=== PATIENT | female | born 1945 | race Caucasian/White ===

== ENCOUNTER 2016-12-04 20:03 | Emergency (ER) | payer MEDICARE ==
[2016-12-04 20:20] VITALS: BMI 30.3
[2016-12-04 20:57] LABS: AUTOMATED EOSINOPHIL 2.7 % (0-5); AUTOMATED LYMPH 24.6 % (17-44); AUTOMATED NEUTROPHIL 58.7 % (45-76); MPV 8.9 fL (7.4-10.4)
[2016-12-04 21:04] LABS: BLOOD UREA NITROGEN 14 MG/DL (7-17); CALCIUM 9.1 MG/DL (8.4-10.2); CALCULATED OSMOLALITY 269 MOs/Kg (270-290); CHLORIDE 100 mEq/L (98-107); GLUCOSE 136 mg/dL (70-99); SODIUM LEVEL 138 mEq/L (137-146); TOTAL PROTEIN 8.1 G/DL (6.3-8.2)
--- NOTE | 2016-12-04 21:04 | DIRPT ---
CLINICAL DATA: Severe left-sided chest pain, onset this evening. Bilateral shoulder blade pain all day. EXAM: PORTABLE CHEST 1 VIEW COMPARISON: None. FINDINGS: The cardiomediastinal contours are normal. The lungs are clear. Pulmonary vasculature is normal. No consolidation, pleural effusion, or pneumothorax. No acute osseous abnormalities are seen. IMPRESSION: No acute pulmonary process. Electronically Signed By: Shannan Yoder M.D. On: 12/04/2016 21:02
[2016-12-04 21:23] LABS: PARTIAL THROMB. TIME 22.9 SEC (22-35)
[2016-12-04] MEDS ORDERED: TRAMADOL 37.5 MG/ACETAMINOPHEN 325 MG TAB PO ONE (21:24)
--- NOTE | 2016-12-04 21:25 | EDPRACDOC ---
- General Information Chief Complaint: Chest Pain Stated Complaint: CHEST PAIN Time Seen by Provider: 12/04/16 20:41 Information Source: Patient Mode of Arrival: Car Home Medications: Home Medications Alprazolam [Xanax] 1 mg PO BID PRN 12/04/16 Atorvastatin Calcium [Lipitor] 40 mg PO DAILY 12/04/16 Hydrocodone Bit/Acetaminophen [[place] 7.5-325 Tablet] 1 tab PO BID PRN 12/04/16 Ketorolac Tromethamine [Toradol] 10 mg PO Q6H PRN #20 tab 12/04/16 Lisinopril/Hydrochlorothiazide [Lisinopril-Hctz 20-25 mg Tab] 1 tab PO DAILY 12/19 Omeprazole 20 mg PO DAILY 12/04/16 Sertraline HCl 100 mg PO DAILY 12/04/16 Allergies/Adverse Reactions: Allergies Allergy/AdvReac Type Severity Reaction Status Date / Time No Known Allergies Allergy Verified 12/04/16 20:20 - History of Present Illness Onset: TODAY HPI: C/o left side CP radiating to back and left arm and dizzyness since this morning. Pain is worse with movement of left arm, and pt cannot turn head to left without causing the pain in chest. Denies trauma, sob, fever, N/V/D, cough , chnages in urine or BM. Med hx = - cardiac dz, HTn, HDL, acid reflux. Chest Pain Location: Reports: Left Chest Pain Radiation: Reports: Back, Neck, Shoulder (L), Arm (L) Symptoms Occur: Reports: Gradually, At Rest, With light exertion Cardiac Risk Factors: Reports: Hyperlipidemia, Hypertension Cardiac History of: Reports: None PE Risk Factors: Reports: None Medications within 24 Hours: Reports: None Prehospital Care: Reports: None Pain Came On: Reports: Gradually Pain Status: Present Now Pain Description: Reports: Sharp Pain Severity: Moderate Pain Worsens With: Reports: Exertion, Coughing, Breathing, Movement Pain Improves With: Reports: Nothing Associated Signs and Symptoms: Reports: None ED Past Medical History - History Reviewed Yes Nurses notes reviewed and agree except as marked - Patient Medical History Cardiac History: Reports: Hypertension, Hypercholesterolemia Psychological History: Denies: Depression Surgical History: Reports: Cholecystectomy - Social Medical History Smoking Status: Never smoker EDM Review of Systems - Review of Systems ROS Negative Except as Marked: Yes All systems reviewed and were negative except as marked Cardiovascular: Chest Pain Musculoskeletal: Arm (left pain), Back (left upper back pain), Neck (left neck pain) - Physical Exam Constitutional: Alert, Distress (pain) Oriented to: Time, Person, Place Last recorded Vital Signs: Last Vital Signs Temp 97.4 F L 12/04/16 20:14 Pulse 98 12/04/16 20:14 Resp 22 12/04/16 20:14 BP 141/72 12/04/16 20:14 Pulse Ox 94 12/04/16 20:14 Oxygen Pulse Oxygen Saturation 94 O2 Device Room Air Oxygen Flow Rate Fraction of Inspired Oxygen ( FIO2) - HEENT Head: Normal Eye Exam: negative: Conjunctival Injection, Scleral Icterus Oropharynx: negative: Drooling TMJ: Normal Nose: No Symptoms Reported Neck: Normal - Respiratory/Cardiovascular Respiratory: Normal - CTA Cardiovascular: Normal - GI Tenderness: Non tender - Musculoskeletal Back: Normal Extremities: Normal - Integumentary Skin: Normal - Neurologic Mood Description: Normal Thought: Coherent Perception: Normal Other Exam Findings: chest wall is non TTP. pain reproduced by movement of neck to left and movement of left arm. denies trauma. ED Chest Pain Exam - Respiratory/Cardiovascular Respiratory: Normal - CTA Cardiovascular/Chest: Normal Radial Pulse: Normal Pedal Pulse: Normal Edema: negative: 1+, 2+, 3+, 4+, 5, 6 Chest Palpation: Normal - Action ASA given in the ED: No - Results 12/04/16 20:15 12/04/16 20:15 WBC 17.9 xk/uL (3.8-10.8) H 12/04/16 20:15 RBC 4.62 xM/uL (4.20-5.40) 12/04/16 20:15 Hgb 14.1 g/dL (12.0-16.0) 12/04/16 20:15 Hct 42.4 % (36-47) 12/04/16 20:15 MCV 92 fL (81-99) 12/04/16 20:15 MCH 30.6 pg (27-32) 12/04/16 20:15 MCHC 33.3 g/dl (33-36) 12/04/16 20:15 RDW 14.2 % (11.5-14.5) 12/04/16 20:15 Plt Count 314 xk/uL (130-400) 12/04/16 20:15 MPV 8.9 fL (7.4-10.4) 12/04/16 20:15 Neut % (Auto) 58.7 % (45-76) 12/04/16 20:15 Lymph % (Auto) 24.6 % (17-44) 12/04/16 20:15 [place] % (Auto) 13.0 % (3-10) H 12/04/16 20:15 Eos % (Auto) 2.7 % (0-5) 12/04/16 20:15 Baso % (Auto) 1.0 % (0-2) 12/04/16 20:15 Absolute Neuts (auto) 10.38 xk/uL (1.7-8.2) H 12/04/16 20:15 Absolute Lymphs (auto) 4.30 xk/uL (0.65-4.75) 12/04/16 20:15 Sodium 138 mEq/L (137-146) 12/04/16 20:15 Potassium 3.9 mEq/L (3.5-5.1) 12/04/16 20:15 Chloride 100 mEq/L (98-107) 12/04/16 20:15 Carbon Dioxide 26 mMOL/L (22-33) 12/04/16 20:15 Anion Gap 16 mEq/L (8-16) 12/04/16 20:15 BUN 14 MG/DL (7-17) 12/04/16 20:15 Creatinine 0.90 MG/DL (0.52-1.04) 12/04/16 20:15 Estimated GFR (MDRD) > 60 mL/min (>=60) 12/04/16 20:15 Glucose 136 mg/dL (70-99) H 12/04/16 20:15 Calculated Osmolality 269 MOs/Kg (270-290) L 12/04/16 20:15 Calcium 9.1 MG/DL (8.4-10.2) 12/04/16 20:15 Total Bilirubin 0.6 MG/DL (0.2-1.3) 12/04/16 20:15 AST 42 IU/L (14-36) H 12/04/16 20:15 ALT 39 IU/L (9-52) 12/04/16 20:15 Alkaline Phosphatase 109 IU/L (55-165) 12/04/16 20:15 Troponin I < 0.01 ng/mL (<.04) 12/04/16 20:15 Total Protein 8.1 G/DL (6.3-8.2) 12/04/16 20:15 Albumin 4.4 G/DL (3.5-5.0) 12/04/16 20:15 Lab Results 12/04/16 12/04/16 20:15 20:15 WBC 17.9 H RBC 4.62 Hgb 14.1 Hct 42.4 MCV 92 MCH 30.6 MCHC 33.3 RDW 14.2 Plt Count 314 MPV 8.9 Neut % (Auto) 58.7 Lymph % (Auto) 24.6 [place] % (Auto) 13.0 H Eos % (Auto) 2.7 Baso % (Auto) 1.0 Absolute Neuts (auto) 10.38 H Absolute Lymphs (auto) 4.30 Sodium 138 Potassium 3.9 Chloride 100 Carbon Dioxide 26 Anion Gap 16 BUN 14 Creatinine 0.90 Estimated GFR (MDRD) > 60 Glucose 136 H Calculated Osmolality 269 L Calcium 9.1 Total Bilirubin 0.6 AST 42 H ALT 39 Alkaline Phosphatase 109 Troponin I < 0.01 Total Protein 8.1 Albumin 4.4 Laboratory Results - last 24 hr 12/04/16 12/04/16 20:15 20:15 WBC 17.9 H RBC 4.62 Hgb 14.1 Hct 42.4 MCV 92 MCH 30.6 MCHC 33.3 RDW 14.2 Plt Count 314 MPV 8.9 Neut % (Auto) 58.7 Lymph % (Auto) 24.6 [place] % (Auto) 13.0 H Eos % (Auto) 2.7 Baso % (Auto) 1.0 Absolute Neuts (auto) 10.38 H Absolute Lymphs (auto) 4.30 Sodium 138 Potassium 3.9 Chloride 100 Carbon Dioxide 26 Anion Gap 16 BUN 14 Creatinine 0.90 Estimated GFR (MDRD) > 60 Glucose 136 H Calculated Osmolality 269 L Calcium 9.1 Total Bilirubin 0.6 AST 42 H ALT 39 Alkaline Phosphatase 109 Troponin I < 0.01 Total Protein 8.1 Albumin 4.4 Laboratory Results 12/04/16 20:15 12/04/16 20:15 - EKG EKG #1 EKG Time: 20:09 -: Yes EKG interpreted by me Rate: bpm: 85 Rhythm: NSR ST: Nons[facility] - Diagnostic Imaging Chest Image interpreted by: Radiologist EXAM: PORTABLE CHEST 1 VIEW COMPARISON: None. FINDINGS: The cardiomediastinal contours are normal. The lungs are clear. Pulmonary vasculature is normal. No consolidation, pleural effusion, or pneumothorax. No acute osseous abnormalities are seen. IMPRESSION: No acute pulmonary process. Electronically Signed By: Shannan Yoder M.D. On: 12/04/2016 21:02 Decision Time to Discharge: 21:32 - Departure Disposition: Home Condition: Stable Final Diagnosis: Radicular neuropathy Instructions: Chest Pain (ED), Chest Wall Pain (ED) Education/Counseling Given To: Patient, Family Member Education/Counseling Given Regarding: Diagnosis, Treatment, Prognosis, Follow Up Referrals: Nuno Mendoza MD [Primary Care Provider] - One Week Prescriptions: New Ketorolac Tromethamine [Toradol] 10 mg PO Q6H PRN #20 tab PRN Reason: Pain No Action Sertraline HCl 100 mg PO DAILY Omeprazole 20 mg PO DAILY Lisinopril/Hydrochlorothiazide [Lisinopril-Hctz 20-25 mg Tab] 1 tab PO DAILY Hydrocodone Bit/Acetaminophen [[place] 7.5-325 Tablet] 1 tab PO BID PRN PRN Reason: Pain Alprazolam [Xanax] 1 mg PO BID PRN PRN Reason: Anxiety Atorvastatin Calcium [Lipitor] 40 mg PO DAILY Additional Instructions: Continue to take home prescription for hydrocodone for pain and toradol and follow up with primary care. Return to Ed for any new or worsening symptoms.
[2016-12-04] MEDS ORDERED: KETOROLAC TROMETHAMINE 10 MG TAB PO ONE (21:54)
[2016-12-04 22:02] VITALS: BP 119/69; PULSE 83; TEMP 97.7
== END 2016-12-04 22:00 | disposition home or self-care (01) ==
LOC: ED 20:03
DX: M54.10 Radiculopathy, site unspecified (principal)
CPT/HCPCS: 36415; 71010; 80053; 84484; 85025; 85610; 85730; 93005; 99284; A9270; J3490